=== PATIENT | male | born 1970 | race Caucasian/White ===

== ENCOUNTER 2020-05-03 05:44 | Outpatient (RCR) | payer OTHER ==
[~2020-05-03] VITALS: Ht 195 cm
== END 2020-05-03 12:24 | disposition home or self-care (01) ==
LOC: PREOP 05:44
PROVIDERS: ATTEND Surgery
DX: Z01.818 Encounter for other preprocedural examination (principal)

== ENCOUNTER → 2020-05-07 | Outpatient (CLI) | payer OTHER ==
[~2020-05-07] MED LIST: HYDR-4226 PO
== END ==
LOC: LAB FS 10:24
PROVIDERS: ATTEND Surgery
DX: Z01.812 Encounter for preprocedural laboratory examination (principal); K42.0 Umbilical hernia with obstruction, without gangrene; Z20.828 Contact with and (suspected) exposure to other viral communicable diseases
CPT/HCPCS: 87635

== ENCOUNTER 2020-05-09 07:00 | Day surgery (SDC) | payer OTHER ==
[~2020-05-09] VITALS: Ht 195 cm; Wt 120.2 kg
[2020-05-09] VITALS (12 sets, daily range): BP systolic 101–140; BP diastolic 71–91
[2020-05-09] MEDS ORDERED: LACTATED RINGERS 1,000 ML IV PRN (07:02)
[2020-05-09] MEDS ORDERED: CLINDAMYCIN 600 MG/50 ML IVPB 50 ML IV ONE (07:15)
[2020-05-09] MEDS ORDERED: CATHETER FLUSH 10 ML SYR IV PRN (07:15)
[2020-05-09] MEDS ORDERED: BUP/EPI 0.5% 1:200,000 (SENSORCAINE) 30 ML VIAL ONE (07:32)
[2020-05-09] MEDS ORDERED: MIDAZOLAM 2 MG/2 ML (VERSED) VIAL ONE (07:37)
[2020-05-09] MEDS ORDERED: LIDOCAINE PF 2% 5 ML (XYLOCAINE) VIAL ONE (07:37)
[2020-05-09] MEDS ORDERED: ROCURONIUM 10 MG/ML 5 ML SYRINGE IV ONE (07:37)
[2020-05-09] MEDS ORDERED: NEOSTIGMINE 3 MG/3 ML VIAL ONE (07:37)
[2020-05-09] MEDS ORDERED: SEVOFLURANE (ULTANE) 15 ML INHAL SOLN ONE (07:37)
[2020-05-09] MEDS ORDERED: fentaNYL INJECTION 100 MCG/2 ML AMP ONE (07:37)
[2020-05-09] MEDS ORDERED: ONDANSETRON 4 MG/2 ML (SDV) Z0FRAN ONE (07:37)
[2020-05-09] MEDS ORDERED: GLYCOPYRROLATE 0.2 MG/ML (ROBINUL) 2 ML VIAL ONE (07:37)
[2020-05-09] MEDS ORDERED: proPOfol 200 MG/20 ML (DIPRIVAN) VIAL IV ONE (07:37)
[2020-05-09 07:44] LABS: BASOPHILS # (AUTO) 0.1 10^3/uL (0.0-0.1); BASOPHILS % (AUTO) 1 % (0-10); EOSINOPHILS # (AUTO) 0.2 10^3/uL (0.0-0.3); EOSINOPHILS % (AUTO) 2 % (0-10); HEMATOCRIT 50 % (40-54); HEMOGLOBIN 16.1 g/dL (13.3-17.7); LYMPHOCYTES # (AUTO) 2.1 10^3/uL (1.0-4.0); LYMPHOCYTES % (AUTO) 20 % (12-44); MEAN CORPUSCULAR HEMOGLOBIN 29 pg (25-34); MEAN CORPUSCULAR HGB CONC 33 g/dL (32-36); MEAN CORPUSCULAR VOLUME 88 fL (80-99); MEAN PLATELET VOLUME 10.2 fL (9.0-12.2); MONOCYTES # (AUTO) 0.9 10^3/uL (0.0-1.0); MONOCYTES % (AUTO) 9 % (0-12); NEUTROPHILS # (AUTO) 7.1 10^3/uL (1.8-7.8); NEUTROPHILS % (AUTO) 68 % (42-75); PLATELET COUNT 338 10^3/uL (130-400); WHITE BLOOD COUNT 10.4 10^3/uL (4.3-11.0)
--- NOTE | 2020-05-09 08:20 | Progress Note-Pre Operative ---
Pre-Operative Progress Note H&P Reviewed The H&P was reviewed, patient examined and no changes noted. Time Seen by Provider: 08:11 Date H&P Reviewed: May 09, 2020 Time H&P Reviewed: 08:12 Pre-Operative Diagnosis: Incarcerated Umb hernia WILLY OSHEA DO May 09, 2020 08:20
[2020-05-09] MEDS ORDERED: HYDROmorphone 2 MG/ML VIAL (DILAUDID) ONE (09:04)
--- NOTE | 2020-05-09 09:11 | Progress Note-Post Operative ---
Post-Operative Progess Note Surgeon (s)/Dosimetrist (s) Surgeon WILLY OSHEA DO Dosimetrist: Rahda Pre-Operative Diagnosis Incarcerated Umb hernia Post-Operative Diagnosis same Procedure & Operative Findings Date of Procedure 05/09/20 Procedure Performed/Findings PROCEDURE: Laparoscopic [umbilical] hernia repair with mesh. COMPLICATIONS: None. INDICATIONS: The patient is a 50, male with an [incarcerated umbilical] hernia, which has continued to increase in size and cause discomfort. The patient was explained the risk and benefits of the procedure and wished to proceed with the procedure. Consent was signed on the chart. DESCRIPTION OF PROCEDURE: The patient was taken into the operating suite, prepped and draped in sterile fashion. Surgical pause was performed. Local anesthetic was infiltrated in left upper quadrant. A #11 blade scalpel was used to make a small skin incision. Cautery was used to dissect down to the fascia, which was then scored and divided the muscle, went through the posterior sheath and a balloon trocar was inserted into the abdomen. The abdomen was then insufflated. [findings] A 5 mm trocar was placed in the right lower quadrant and a 5 mm trocar was placed in left lower quadrant. Next took omentum out of hernia and then removed preperitoneal fat as well. I also took some fat of peritoneum to ensure the mesh would lay down nicely. Echo Ventralight mesh was then inserted in the abdomen grabbed through the stab incision. The balloon was inflated on the mesh. Circumferential tacks were placed with a SecureStrap Tacker. The balloon was then removed and inner crown was created as well. The mesh was tacked with pressure being decreased. The 12 mm fascial defect was then closed using 0 Vicryl. The abdomen was then desufflated,the trocars were removed. The skin was then closed using 4-0 Monocryl in a running subcuticular fashion. The abdomen was washed and dried and Skin Affix was placed over the incisions. The patient tolerated procedure well without any complications. He was taken to recovery room in stable condition. Dr. Garcia assisted on this case helping to make incisions, close incisions, identify anatomy and hold anatomy out of the way. Anesthesia Type GET Estimated Blood Loss Estimated blood loss (mL): scant Specimens/Packing Specimens Removed none WILLY OSHEA DO May 09, 2020 09:11
[2020-05-09] MEDS ORDERED: HYDR-4226 PO (09:13)
--- NOTE | 2020-05-09 09:13 | Discharge Inst-Surgical ---
Discharge Inst-Surgical Depart Medication/Instructions New, Converted or Re-Newed RX: RX Given to Pt/Family Patient Instructions Follow up Appt: Make appointment for 1 week. [phone] Instructions: No lifting greater than 20 pounds. No strenuous activity. May shower in 24 hours, no tub bath or soaking. Use incentive spirometer at home as directed. No Smoking Skin/Wound Care: May remove bandages in am. You need to leave the Dermabond on incision it will fall off on it's own. Symptoms to Report: Appetite Changes, Extremity Discoloration, Numbness/Tingling, Swelling Increased, Bleeding Excessive, Eyesight Changes, Pain Increased, Urine Color Change, Constipation(Persistent), Fever over 101 degree F, Pain/Pressure in chest, Urinating Difficulty, Cough Up/Vomit Blood, Heart Beat Irreg/Pounding, Pain/Pressure in jaw, Cramps in feet or legs, Lightheadedness, Pain/Pressure in shoulder, Diarrhea(Persistent), Memory Changes Suddenly, Questions/Concerns, Weight gain consecutive days, Dizziness/Fainting, Nausea/Vomiting, Shortness of Breath, Weight gain over 2 pounds If questions or concerns contact your physician Or seek help at emergency department. Activity Activity as Tolerated: Yes Activity Instructions: Avoid Stress to Incision Driving Instructions: No Driving/Refer to Dr. Kwon Discharge Diet: No Restrictions Diet After 24 Hours: Clear Liquid if Nauseous If Any Problems/Questions/Issu: Contact Your Physician, Go to Emergency Room Skin/Wound Care Infection Signs and Symptoms: Increased Redness, Foul Odor of Wound, Increased Drainage, Skin Itchy or Has a Rash, Increased Swelling, Temperature Above 101 F Wound Care Comment: Heating pad to shoulder or neck tonight for pain Bathing Instructions: Shower Stitches/Michelle/Dermabond Dis: Dermabond Ice Pack: Ice On and Off Site (at incisions as needed for pain) WILLY OSHEA DO May 09, 2020 09:13
[2020-05-09] MEDS ORDERED: PHENYLEPHRINE 100 MCG/ML 10 ML (ANESTHESIA) SYR ONE (09:29)
[2020-05-09] MEDS ORDERED: ONDANSETRON 4 MG/2 ML (SDV) Z0FRAN IVP PRN (09:30)
[2020-05-09] MEDS ORDERED: morphine INJ 10 MG/ML 1ML (SYR OR VIAL) IVP ONE (09:30)
[2020-05-09] MEDS ORDERED: HYDROmorphone 2 MG/ML VIAL (DILAUDID) IV ONE (09:30)
--- NOTE | 2020-05-09 09:52 | Anesthesia-General Post-Op ---
General Patient Condition Mental Status/LOC: Same as Preop Cardiovascular: Satisfactory Nausea/Vomiting: Absent Respiratory: Satisfactory Pain: Controlled Complications: Absent Post Op Complications Complications None Follow Up Care/Instructions Patient Instructions None needed. Anesthesia/Patient Condition Patient Condition Patient is doing well, having abdominal pain which is to be expected after this procedure, stable vital signs, no apparent adverse anesthesia problems. LEATHA RABAGO DO May 09, 2020 09:52
--- NOTE | 2020-05-09 11:15 | NUR ---
2ND BAG FLUIDS 600CC INFUSED
== END 2020-05-09 11:30 | disposition home or self-care (01) ==
LOC: SDC 07:00
PROVIDERS: ATTEND Surgery
DX: K42.0 Umbilical hernia with obstruction, without gangrene (principal); E66.9 Obesity, unspecified; Z68.31 Body mass index [BMI] 31.0-31.9, adult; F17.210 Nicotine dependence, cigarettes, uncomplicated; Z79.899 Other long term (current) drug therapy; Z88.0 Allergy status to penicillin; Z80.9 Family history of malignant neoplasm, unspecified; Z83.3 Family history of diabetes mellitus; Z82.49 Family history of ischemic heart disease and other diseases of the circulatory system
CPT/HCPCS: 49653; 85025; 87081; C1781; 36415

== ENCOUNTER → 2020-08-13 | Outpatient (CLI) | payer BC | LOC: CARD 08:58 | PROVIDERS: ATTEND Family Medicine | DX: R06.02 Shortness of breath (principal) | CPT/HCPCS: 93306 ==

== ENCOUNTER 2022-04-06 15:30 | Observation (INO) | payer BC, OTHER ==
[~2022-04-06] VITALS: Ht 193 cm; Wt 106.3 kg
[2022-04-06] MEDS ORDERED: KETOROLAC 30 MG/ML VIAL IVP STA (15:40)
[2022-04-06] MEDS ORDERED: NS IV 1000 ML 1,000 ML IV STA (15:40)
[2022-04-06] MEDS ORDERED: ONDANSETRON 4 MG/2 ML (SDV) Z0FRAN IVP STA (15:40)
[2022-04-06 15:45] LABS: BASOPHILS # (AUTO) 0.1 10^3/uL (0.0-0.1); BASOPHILS % (AUTO) 0 % (0-10); EOSINOPHILS # (AUTO) 0.2 10^3/uL (0.0-0.3); EOSINOPHILS % (AUTO) 1 % (0-10); HEMATOCRIT 50 % (40-54); HEMOGLOBIN 16.8 g/dL (13.3-17.7); LYMPHOCYTES # (AUTO) 3.7 10^3/uL (1.0-4.0); LYMPHOCYTES % (AUTO) 22 % (12-44); MEAN CORPUSCULAR HEMOGLOBIN 29 pg (25-34); MEAN CORPUSCULAR HGB CONC 34 g/dL (32-36); MEAN CORPUSCULAR VOLUME 86 fL (80-99); MEAN PLATELET VOLUME 9.5 fL (9.0-12.2); MONOCYTES # (AUTO) 1.5 10^3/uL (0.0-1.0); MONOCYTES % (AUTO) 9 % (0-12); NEUTROPHILS # (AUTO) 11.1 10^3/uL (1.8-7.8); NEUTROPHILS % (AUTO) 67 % (42-75); PLATELET COUNT 338 10^3/uL (130-400); WHITE BLOOD COUNT 16.6 10^3/uL (4.3-11.0)
[2022-04-06] MEDS ORDERED: NS 100 ML (IVPB) BAG IV ONE (16:00)
[2022-04-06] MEDS ORDERED: IOHEXOL 350 MG/ML 100 ML (OMNIPAQUE 350) VIAL IV ONE (16:00)
[2022-04-06] MEDS ORDERED: HOLD METFORMIN - RECEIVED CONTRAST 20 ML VIAL IV SCH (16:00)
[2022-04-06 16:06] LABS: POTASSIUM 4.1 MMOL/L (3.6-5.0)
--- NOTE | 2022-04-06 16:06 | ED Abdominal Pain ---
General Chief Complaint: Abdominal/GI Problems Stated Complaint: LRQ PAIN Source of Information: Patient, Spouse History of Present Illness Date Seen by Provider: Apr 06, 2022 Time Seen by Provider: 15:38 Initial Comments 52-year-old male presenting with complaints of right sided abdominal pain that started yesterday. He had been helping family members move furniture and thought that maybe he had a pulled muscle. He had gone to see car races last night despite having the pain. He states that throughout the day his pain is felt worse and he has had nausea and poor appetite. He has not had any documented fever or chills. He states that he has previously had kidney stones as well as a hernia repair. He still has his gallbladder and appendix. He had a bowel movement yesterday morning that was normal. He denies any pain or burning with urination. Timing/Duration: 12-24 Hours Severity/Quality: Severe, Sharp Location: RUQ, RLQ Radiation: No Radiation Activities at Onset: None Modifying Factors: Worsens With Eating, Worsens With Movement, Worsens With Palpation Associated Symptoms: No Back Pain, No Chest Pain, No Diaphoresis, No Fever/Chills, No Headache, No Heartburn; Nausea/Vomiting; No Rash, No Shortness of Air, No Swelling/Mass in Abdomen, No Syncope, No Weakness Allergies and Home Medications Allergies Coded Allergies: Penicillins (Verified Allergy, Unknown, FROM CHILDHOOD, 05/03/20) Patient Home Medication List Home Medication List Reviewed: Yes Hydrocodone/Acetaminophen (Hydrocodone/Acetaminophen 5 MG/325 MG TAB) 1 Each Tablet, 1 TAB PO Q6H Prescribed by: WILLY OSHEA on 05/09/20 0913 Review of Systems Review of Systems Constitutional: No chills, No fever EENTM: No Symptoms Reported Respiratory: No Symptoms Reported Cardiovascular: No Symptoms Reported Gastrointestinal: See HPI Genitourinary: Denies Pain Musculoskeletal: no symptoms reported Skin: no symptoms reported Psychiatric/Neurological: No Symptoms Reported Endocrine: No Symptoms Reported Past Eepdrnt-Ionmiy-Waoffy Hx Seasonal Allergies Seasonal Allergies: Yes Past Medical History Surgery/Hospitalization HX: Inguinal hernia Surgeries: Yes (R WRIST FX, L TIBIA FX, BACK) Adenoidectomy Respiratory: No Cardiac: No Neurological: No Genitourinary: No Gastrointestinal: No Musculoskeletal: No Endocrine: No HEENT: Yes (GLASSES) Cancer: No Psychosocial: No Integumentary: No Blood Disorders: No Adverse Reaction/Blood Tranf: No (N/A) Physical Exam Vital Signs Vital Signs - First Documented 04/06/22 04/06/22 16:01 16:56 Temp 36.3 Pulse 88 Resp 20 B/P (MAP) 156/100 (118) Pulse Ox 96 O2 Delivery Room Air Capillary Refill : Height/Weight/BMI Height: '" Weight: lbs. oz. kg; 31.61 BMI Method: General Appearance: moderate distress HEENT: PERRL/EOMI, pharynx normal Neck: non-tender, full range of motion, supple, normal inspection Respiratory: chest non-tender, lungs clear, normal breath sounds Cardiovascular: normal peripheral pulses, regular rate, rhythm Gastrointestinal: soft, no pulsatile mass, abnormal bowel sounds (Hypoactive); No distended; guarding; No rebound; tenderness (Right upper quadrant and right lower quadrant) Rectal: deferred Extremities: normal range of motion, non-tender, normal capillary refill Back: no CVA tenderness Neurologic/Psychiatric: alert, oriented x 3 Skin: normal color, warm/dry Progress/Results/Core Measures Results/Orders Lab Results Laboratory Tests Test 04/06/22 15:40 Range/Units White Blood Count 16.6 H 4.3-11.0 10^3/uL Red Blood Count 5.86 H 4.30-5.52 10^6/uL Hemoglobin 16.8 13.3-17.7 g/dL Hematocrit 50 40-54 % Mean Corpuscular Volume 86 80-99 fL Mean Corpuscular Hemoglobin 29 25-34 pg Mean Corpuscular Hemoglobin Concent 34 32-36 g/dL Red Cell Distribution Width 13.5 10.0-14.5 % Platelet Count 338 130-400 10^3/uL Mean Platelet Volume 9.5 9.0-12.2 fL Immature Granulocyte % (Auto) 1 % Neutrophils (%) (Auto) 67 42-75 % Lymphocytes (%) (Auto) 22 12-44 % Monocytes (%) (Auto) 9 0-12 % Eosinophils (%) (Auto) 1 0-10 % Basophils (%) (Auto) 0 0-10 % Neutrophils # (Auto) 11.1 H 1.8-7.8 10^3/uL Lymphocytes # (Auto) 3.7 1.0-4.0 10^3/uL Monocytes # (Auto) 1.5 H 0.0-1.0 10^3/uL Eosinophils # (Auto) 0.2 0.0-0.3 10^3/uL Basophils # (Auto) 0.1 0.0-0.1 10^3/uL Immature Granulocyte # (Auto) 0.1 0.0-0.1 10^3/uL Neutrophils % (Manual) 64 % Lymphocytes % (Manual) 25 % Monocytes % (Manual) 11 % Sodium Level 139 135-145 MMOL/L Potassium Level 4.1 3.6-5.0 MMOL/L Chloride Level 100 98-107 MMOL/L Carbon Dioxide Level 26 21-32 MMOL/L Anion Gap 13 5-14 MMOL/L Blood Urea Nitrogen 11 7-18 MG/DL Creatinine 0.89 0.60-1.30 MG/DL Estimat Glomerular Filtration Rate 104 BUN/Creatinine Ratio 12 Glucose Level 124 H 70-105 MG/DL Calcium Level 9.4 8.5-10.1 MG/DL Corrected Calcium 9.2 8.5-10.1 MG/DL Total Bilirubin 0.8 0.1-1.0 MG/DL Aspartate Amino Transf (AST/SGOT) 20 5-34 U/L Alanine Aminotransferase (ALT/SGPT) 23 0-55 U/L Alkaline Phosphatase 130 40-136 U/L Total Protein 7.5 6.4-8.2 GM/DL Albumin 4.2 3.2-4.5 GM/DL Lipase 78 8-78 U/L My Orders Orders - PENNY RICHARDS MD Comprehensive Metabolic Panel (04/06/22 15:40) Lipase (04/06/22 15:40) Ua Culture If Indicated (04/06/22 15:40) Ed Iv/Invasive Line Start (04/06/22 15:40) Cbc With Automated Diff (04/06/22 15:40) Ct Abdomen/Pelvis W (04/06/22 15:40) Ns Iv 1000 Ml (Sodium Chloride 0.9%) (04/06/22 15:40) Ondansetron Injection (Zofran Injectio (04/06/22 15:40) Ketorolac Injection (Toradol Injection) (04/06/22 15:40) Manual Differential (04/06/22 15:40) Iohexol Injection (Omnipaque 350 Mg/Ml 1 (04/06/22 16:00) Received Contrast (Hold Metformin- Contr (04/06/22 16:00) Ns (Ivpb) (Sodium Chloride 0.9% Ivpb Bag (04/06/22 16:00) Ciprofloxacin Iv 400mg/200ml (Cipro Iv S (04/06/22 16:47) Metronidazole 500mg/100ml Ivpb (Flagyl 5 (04/06/22 16:47) Lactated Ringers (Lr 1000 Ml Iv Solution (04/06/22 16:47) Medications Given in ED Current Medications Medications Dose Ordered Sig/Bhanu Route Start Time Stop Time Status Last Admin Dose Admin Iohexol 100 ml ONCE ONCE IV 04/06/22 16:00 04/06/22 16:01 DC 04/06/22 16:05 100 ML Sodium Chloride 100 ml ONCE ONCE IV 04/06/22 16:00 04/06/22 16:01 DC 04/06/22 16:05 100 ML Vital Signs/I&O 04/06/22 04/06/22 16:01 16:56 Temp 36.3 36.3 Pulse 88 81 Resp 20 B/P (MAP) 156/100 (118) 150/86 Pulse Ox 96 96 O2 Delivery Room Air Progress Progress Note #1: Progress Note Check basic labs, urine and CT scan of the abdomen and pelvis to evaluate for possible infection versus appendicitis versus colitis versus diverticulitis versus pyelonephritis versus kidney stone. Give normal saline 1 L IV fluid bolus for hydration, Toradol 30 mg IV for pain, Zofran 4 mg IV for nausea and vomiting Progress Note #2: Progress Note Labs shows elevated white blood cell count to 16.6 thousand with a left shift. Chemistry does not show any acute significant abnormality. His symptoms were little improved with treatment here in the ED but continues to have localized pain with palpation and movement. Progress Note #3: Time: 16:[address] scan shows findings for acute appendicitis without perforation or abscess. Discussed with Dr. Garcia the on-call surgeon and he accepted the patient for admission. Since he last had something to eat around 3 or 3:30 PM will keep him n.p.o. and start Cipro and Flagyl since he has a penicillin allergy. Continue with IV fluids and pain medicine with plans to do surgery later tonight or tomorrow once the antibiotics have started to help with the inflammation and pain Diagnostic Imaging Diagonstic Imaging: CT Plain Films/CT/US/NM/MRI: abdomen, pelvis Comments NAME: GISELL [facility]OST [facility] REC#: [id number] PT STATUS: REG ER : 1970 PHYSICIAN: PENNY RICHARDS MD ADMIT DATE: 04/06/22/ER FS Signed Date of Exam:04/06/22 CT ABDOMEN/PELVIS W PROCEDURE: CT abdomen and pelvis with contrast. TECHNIQUE: Multiple contiguous axial images were obtained through the abdomen and pelvis after administration of intravenous contrast. Auto Exposure Controls were utilized during the CT exam to meet ALARA standards for radiation dose reduction. All CT scans use one or more of the following dose optimizing techniques: automated exposure control, MA and/or KvP adjustment based on patient size and exam type or iterative reconstruction. DATE: April 06, 2022. COMPARISON: CT abdomen and pelvis April 12, 2014. INDICATION: 52-year-old male, right lower quadrant abdominal pain. Nausea and vomiting. FINDINGS: The visualized portions of the lung bases are clear. The heart is not enlarged. There is no identified pericardial effusion. The liver is unremarkable in size and contour. There is no identified liver lesion. The main, right and left portal veins are patent. The gallbladder is unremarkable. There is no biliary ductal dilation. Unremarkable appearance of the pancreas. The spleen is normal in size. The adrenal glands are unremarkable. There is a nonobstructing right renal stone. The urinary collecting systems are not distended. There is no identified ureteral stone. The urinary bladder is unremarkable. The appendix is abnormally dilated with very prominent adjacent inflammatory stranding consistent with acute appendicitis. There is no identified free intraperitoneal air. There is no identified drainable fluid collection or abscess. The additional segments of the intestinal tract are not distended. There are atherosclerotic calcifications. There is no identified abnormally enlarged lymph node in the abdomen or pelvis which meets CT size criteria for adenopathy. There is no identified acute bony abnormality. There are degenerative changes of the spine. IMPRESSION: CT abdomen and pelvis: 1. Findings consistent with acute appendicitis without evidence of perforation or abscess. Dictated by: Dictated on workstation # [id number] Dict: 04/06/22 1609 Trans: 04/06/22 1636 [facility] [id number] Interpreted by: DANIELA SAEZ MD Electronically signed by: DANIELA SAEZ MD 04/06/22 [id number] Reviewed: Reviewed by Me Departure Communication (Admissions) Time/Spoke to Admitting Phy: 16:[address] Garcia for general surgery and he advised to start antibi otics on the patient, keep him n.p.o., admitted to the hospital and he would see him later tonight or early tomorrow morning. Impression Primary Impression: Acute appendicitis Qualified Codes: K35.30 - Acute appendicitis with localized peritonitis, without perforation or gangrene Additional Impression: Right lower quadrant abdominal pain Disposition: 30 STILL A PATIENT Condition: Stable Admissions Decision to Admit Reason: Admit from ER (General) Decision to Admit/Date: Apr 06, 2022 Time/Decision to Admit Time: 16:42 Departure-Patient Inst. Referrals: PIPPA CROCKER MD (PCP) Primary Care Physician PENNY RICHARDS MD Apr 06, 2022 16:06
[2022-04-06 16:07] LABS: ALBUMIN 4.2 GM/DL (3.2-4.5); BILIRUBIN,TOTAL 0.8 MG/DL (0.1-1.0); CALCIUM 9.4 MG/DL (8.5-10.1); CREATININE SERUM 0.89 MG/DL (0.60-1.30); TOTAL PROTEIN 7.5 GM/DL (6.4-8.2)
[2022-04-06 16:13] LABS: LYMPHOCYTES % (MANUAL) 25 %; MONOCYTES % (MANUAL) 11 %; NEUTROPHILS % (MANUAL) 64 %
--- NOTE | 2022-04-06 16:36 | Diagnostic Imaging Report ---
PROCEDURE: CT abdomen and pelvis with contrast. TECHNIQUE: Multiple contiguous axial images were obtained through the abdomen and pelvis after administration of intravenous contrast. Auto Exposure Controls were utilized during the CT exam to meet ALARA standards for radiation dose reduction. All CT scans use one or more of the following dose optimizing techniques: automated exposure control, MA and/or KvP adjustment based on patient size and exam type or iterative reconstruction. DATE: April 06, 2022. COMPARISON: CT abdomen and pelvis April 12, 2014. INDICATION: 52-year-old male, right lower quadrant abdominal pain. Nausea and vomiting. FINDINGS: The visualized portions of the lung bases are clear. The heart is not enlarged. There is no identified pericardial effusion. The liver is unremarkable in size and contour. There is no identified liver lesion. The main, right and left portal veins are patent. The gallbladder is unremarkable. There is no biliary ductal dilation. Unremarkable appearance of the pancreas. The spleen is normal in size. The adrenal glands are unremarkable. There is a nonobstructing right renal stone. The urinary collecting systems are not distended. There is no identified ureteral stone. The urinary bladder is unremarkable. The appendix is abnormally dilated with very prominent adjacent inflammatory stranding consistent with acute appendicitis. There is no identified free intraperitoneal air. There is no identified drainable fluid collection or abscess. The additional segments of the intestinal tract are not distended. There are atherosclerotic calcifications. There is no identified abnormally enlarged lymph node in the abdomen or pelvis which meets CT size criteria for adenopathy. There is no identified acute bony abnormality. There are degenerative changes of the spine. IMPRESSION: CT abdomen and pelvis: 1. Findings consistent with acute appendicitis without evidence of perforation or abscess. Dictated by: Dictated on workstation # [id number]
[2022-04-06] MEDS ORDERED: metroNIDAZOLE 500MG/100ML IVPB 100 ML IV STA (16:47)
[2022-04-06] MEDS ORDERED: CIPROFLOXACIN IV 400MG/200ML 200 ML IV STA (16:47)
[2022-04-06] MEDS ORDERED: LACTATED RINGERS 1,000 ML IV STA (16:47)
[2022-04-06] MEDS ORDERED: ONDANSETRON 4 MG/2 ML (SDV) Z0FRAN IVP PRN (18:15)
[2022-04-06] MEDS ORDERED: morphine INJ 4 MG/ML 1 ML (VIAL/SYRINGE) ONE (18:17)
[2022-04-06] MEDS: LACTATED RINGERS 1,000 ML IV SCH ×2 (18:22→23:23)
[2022-04-06] MEDS: morphine INJ 4 MG/ML 1 ML (VIAL/SYRINGE) IVP PRN ×2 (18:23→22:57)
[2022-04-06 20:09] VITALS: BP 117/80
[2022-04-06] MEDS: NICOTINE 21 MG (NICODERM) PATCH TD SCH (23:23)
[2022-04-06 23:42] VITALS: BP 108/71
[2022-04-07] VITALS (10 sets, daily range): BP systolic 112–129; BP diastolic 61–91
[2022-04-07] MEDS ORDERED: ACETAMINOPHEN 325 MG TABLET PO PRN
[2022-04-07] MEDS ORDERED: metroNIDAZOLE 500MG/100ML IVPB 100 ML IV SCH (05:00)
[2022-04-07] MEDS ORDERED: CIPROFLOXACIN IV 400MG/200ML 200 ML IV SCH (05:00)
[2022-04-07] MEDS: morphine INJ 4 MG/ML 1 ML (VIAL/SYRINGE) IVP PRN (05:07)
--- NOTE | 2022-04-07 07:27 | History & Physical-Surgical ---
History of Present Illness History of Present Illness Patient Consulted On(opal/time) 04/07/22 07:21 Date Seen by Provider: Apr 07, 2022 Time Seen by Provider: 08:05 History of Present Illness Patient is a 52 year old male who presented to the ED on 04/06 with chief complaint of RLQ abdominal pain. Pt states that his pain started on 04/05 around 17:00 when he was helping his son move. He initially thought he had pulled a muscle, but the pain began to progressively worsen. Patient states that his pain is now a 4-5/10 but that before admission it was a 12/10. Patient describes the pain as sharp and constant, and has not noticed anything that makes the pain better or worse. Patient states that on 04/05 the pain radiated to his flank and right lower back, but by the end of the day, was only located in his RLQ. Patient had some nausea yesterday, with one episode of vomiting. He does not currently feel nauseous. CT showed an abnormally dilated appendix with prominent adjacent stranding consistent with acute appendicitis without signs of perforation or abscess formation. Patient has also had some intermittent fever and chills. Patient is tender on palpation in the RLQ with some guarding. CC: RLQ abdominal pain. Patient is a 52 year old male who had rlq abdominal pain started about 2 days ago. Sharp pain move to flank and back some, then focalized to rlq. [place] 7/10 currently. Worse with movement. Laying still a little better. Has had nausea and emesis. Ct scan consistent with acute appendicitis. Allergies and Home Medications Allergies Coded Allergies: Penicillins (Verified Allergy, Unknown, FROM CHILDHOOD, 05/03/20) Patient Home Medication List Home Medication List Reviewed: Yes Hydrocodone/Acetaminophen (Hydrocodone/Acetaminophen 5 MG/325 MG TAB) 1 Each Tablet, 1 TAB PO Q6H Prescribed by: WILLY OSHEA on 05/09/20 0913 Past Xseyhvp-Hkymsr-Ikktgt Hx Patient Social History Smoking Status: Current Everyday Smoker (1.5 PPD, approximately 40 years) Type Used: Cigarettes 2nd Hand Smoke Exposure: Yes Recent Hopitalizations: No Alcohol Use?: No Have you traveled recently?: No Seasonal Allergies Seasonal Allergies: Yes Surgeries History of Surgeries: Yes (R WRIST FX, L TIBIA FX, BACK, Hernia) Surgeries: Adenoidectomy Respiratory History of Respiratory Disorde: No Cardiovascular History of Cardiac Disorders: No Neurological History of Neurological Disord: No Genitourinary History of Genitourinary Disor: No Gastrointestinal History of Gastrointestinal Di: No Musculoskeletal History of Musculoskeletal Dis: No Endocrine History of Endocrine Disorders: No HEENT History of HEENT Disorders: Yes (GLASSES) Cancer History of Cancer: No Psychosocial History of Psychiatric Problem: No Integumentary History of Skin or Integumenta: No Blood Transfusions History of Blood Disorders: No Adverse Reaction to a Blood Tr: No (N/A) Family Medical History Significant Family History: No Pertinent Family Hx Review of Systems-General Constitutional: chills, fever; No weakness EENTM: No hearing loss, No blurred vision, No double vision Respiratory: No cough, No short of breath Cardiovascular: No chest pain, No edema Gastrointestinal: RLQ; No constipation, No diarrhea; nausea, vomiting Genitourinary: No dysuria, No frequency Musculoskeletal: back pain (Unchanged from normal), joint pain (Unchanged from normal) Skin: No change in color, No change in hair/nails Psychiatric/Neurological: Denies Anxiety, Denies Depressed, Denies Emotional Problems, Denies Numbness, Denies Weakness All Other Systems Reviewed Negative Unless Noted: Yes (Negative excepted noted.) Physical Exam-General Problems Physical Exam Vital Signs Vital Signs - First Documented 04/06/22 04/06/22 16:01 16:56 Temp 36.3 Pulse 88 Resp 20 B/P (MAP) 156/100 (118) Pulse Ox 96 O2 Delivery Room Air Capillary Refill : General Appearance: WD/WN, no apparent distress HEENT: PERRL/EOMI, pharynx normal Neck: non-tender, supple Respiratory: chest non-tender, no respiratory distress Cardiovascular: regular rate, rhythm, no edema Gastrointestinal: distended, guarding (RLQ), tenderness (RLQ) Rectal: deferred Back: no CVA tenderness, no vertebral tenderness Extremities: non-tender, normal capillary refill Neurologic/Psychiatric: alert, normal mood/affect, oriented x 3 Skin: normal color, warm/dry Lymphatic: no adenopathy Data Review Labs Laboratory Tests 04/06/22 15:40: White Blood Count 16.6H, Red Blood Count 5.86H, Hemoglobin 16.8, Hematocrit 50, Mean Corpuscular Volume 86, Mean Corpuscular Hemoglobin 29, Mean Corpuscular Hemoglobin Concent 34, Red Cell Distribution Width 13.5, Platelet Count 338, Mean Platelet Volume 9.5, Immature Granulocyte % (Auto) 1, Neutrophils (%) (Auto) 67, Lymphocytes (%) (Auto) 22, Monocytes (%) (Auto) 9, Eosinophils (%) (Auto) 1, Basophils (%) (Auto) 0, Neutrophils # (Auto) 11.1H, Lymphocytes # (Auto) 3.7, Monocytes # (Auto) 1.5H, Eosinophils # (Auto) 0.2, Basophils # (Auto) 0.1, Immature Granulocyte # (Auto) 0.1, Neutrophils % (Manual) 64, Lymphocytes % (Manual) 25, Monocytes % (Manual) 11, Sodium Level 139, Potassium Level 4.1, Chloride Level 100, Carbon Dioxide Level 26, Anion Gap 13, Blood Urea Nitrogen 11, Creatinine 0.89, Estimat Glomerular Filtration Rate 104, BUN/Creatinine Ratio 12, Glucose Level 124H, Calcium Level 9.4, Corrected Calcium 9.2, Total Bilirubin 0.8, Aspartate Amino Transf (AST/SGOT) 20, Alanine Aminotransferase (ALT/SGPT) 23, Alkaline Phosphatase 130, Total Protein 7.5, Albumin 4.2, Lipase 78 Assessment/Plan Assessment/Plan Admission Diagonsis rlq abdominal pain acute appendicitis nausea vomiting. Admission Status: Observation Reason for Inpatient Admission: Acute appendicitis Assessment/Plan Acute appendicitis Abdominal pain N/V Scheduled for appendectomy Maintain NPO Continue pain management Continue antibiotics Continue IV fluids Continue antiemetics rlq abdominal pain acute appendicitis nausea vomiting discussed risks and benefits of laparoscopic appendectomy all other indicated procedures he understands and wishes to proceed. Maintain NPO Continue pain management Continue antibiotics cipro/flagyl Continue IV fluids Continue antiemetics Supervisory-Addendum Brief Verification & Attestation Participated in pt care: history, MDM, physical Personally performed: exam, history, MDM, supervision of care Care discussed with: Medical Student Procedures: n/a Results interpretation: Verified all documentation Verification and Attestation of Medical Student E/M Service A medical student performed and documented this service in my presence. I reviewed and verified all information documented by the medical student and made modifications to such information, when appropriate. I personally performed the physical exam and medical decision making. Samantha Garcia, Apr 07, 2022,08:36 LIZETT HINDS Apr 07, 2022 07:27 SAMANTHA GARCIA DO Apr 07, 2022 08:31
[2022-04-07] MEDS ORDERED: LACTATED RINGERS 1,000 ML IV PRN (07:45)
[2022-04-07] MEDS ORDERED: LIDOCAINE PF 2% 5 ML (XYLOCAINE) VIAL ONE (08:56)
[2022-04-07] MEDS ORDERED: fentaNYL INJ 100 MCG/2 ML AMP ONE (08:56)
[2022-04-07] MEDS ORDERED: proPOfol 200 MG/20 ML (DIPRIVAN) VIAL IV ONE (08:56)
[2022-04-07] MEDS ORDERED: SUCCINYLCHOLINE INJ 100 MG/5 ML SYR/VIAL ONE (08:56)
[2022-04-07] MEDS ORDERED: ROCURONIUM 10 MG/ML 5 ML SYRINGE IV ONE (08:56)
[2022-04-07] MEDS ORDERED: MIDAZOLAM 2 MG/2 ML (VERSED) VIAL ONE (08:57)
[2022-04-07] MEDS: NICOTINE 21 MG (NICODERM) PATCH TD SCH (09:01)
[2022-04-07] MEDS ORDERED: LIDOCAINE/EPI 2% 1:200,00 (XYLOCAINE) 10 ML VIAL ONE (09:06)
[2022-04-07] MEDS ORDERED: PHENYLEPHRINE 100 MCG/ML 10 ML (ANESTHESIA) SYR ONE (09:35)
[2022-04-07] MEDS: LACTATED RINGERS 1,000 ML IV SCH (10:16)
[2022-04-07] MEDS ORDERED: NEOSTIGMINE (BLOXIVERZ ) 1 MG/1ML 10 ML VIAL ONE (10:25)
[2022-04-07] MEDS ORDERED: GLYCOPYRROLATE 0.2 MG/ML (ROBINUL) 2 ML VIAL ONE (10:25)
[2022-04-07] MEDS ORDERED: SEVOFLURANE (ULTANE) 15 ML INHAL SOLN ONE (10:32)
[2022-04-07] MEDS ORDERED: DOCU-143 PO (10:59)
[2022-04-07] MEDS ORDERED: CIPR-225 PO (10:59)
[2022-04-07] MEDS ORDERED: METR375C PO (10:59)
[2022-04-07] MEDS ORDERED: ACHD5005 PO (10:59)
[2022-04-07] MEDS ORDERED: PROMETHAZINE INJ 25 MG/ML (PHENERGAN) AMP IVP ONE (11:00)
[2022-04-07] MEDS ORDERED: morphine INJ 10 MG/ML 1ML (SYR OR VIAL) IVP ONE (11:00)
[2022-04-07] MEDS ORDERED: MEPERIDINE (DEMEROL) INJ 50 MG/ML IVP ONE (11:00)
[2022-04-07] MEDS ORDERED: HYDROmorphone 2 MG/ML VIAL (DILAUDID) IV ONE (11:00)
[2022-04-07] MEDS ORDERED: ONDANSETRON 4 MG/2 ML (SDV) Z0FRAN IVP PRN (11:00)
--- NOTE | 2022-04-07 11:00 | Discharge Inst-Simple/Standard ---
Discharge Inst-Standard Discharge Medications New, Converted or Re-Newed RX: Transmitted to Pharmacy Patient Instructions/Follow Up Plan of Care/Instructions/FU: 2-3 weeks Radha Activity as Tolerated: No Discharge Diet: Regular Diet Other Inst to Patient Follow up Appt: Make appointment for 2-3 week. Instructions: No lifting greater than 10 pounds. No strenuous activity. May shower in 24 hours, no tub bath or soaking. Use incentive spirometer at home as directed. No Smoking Skin/Wound Care: You have special glue over your incision that will fall off on it's own. Symptoms to Report: Appetite Changes, Extremity Discoloration, Numbness/Tingling, Swelling Increas ed, Bleeding Excessive, Eyesight Changes, Pain Increased, Urine Color Change, Constipation(Persistent), Fever over 101 degree F, Pain/Pressure in chest, Urinating Difficulty, Cough Up/Vomit Blood, Heart Beat Irreg/Pounding, Pain/Pressure in jaw, Vaginal Bleeding Increase, Cramps in feet or legs, Lightheadedness, Pain/Pressure in shoulder, Diarrhea(Persistent), Memory Changes Suddenly, Questions/Concerns, Weight gain consecutive days, Dizziness/Fainting, Nausea/Vomiting, Shortness of Breath, Weight gain over 2 pounds If questions or concerns contact your physician Or seek help at emergency department. SAMANTHA CHANDLER DO Apr 07, 2022 11:00
--- NOTE | 2022-04-07 13:24 | Anesthesia-General Post-Op ---
General Patient Condition Mental Status/LOC: Same as Preop Cardiovascular: Satisfactory Nausea/Vomiting: Absent Respiratory: Satisfactory Pain: Controlled Complications: Absent Post Op Complications Complications None Follow Up Care/Instructions Patient Instructions None needed. Anesthesia/Patient Condition Patient Condition Patient is doing well, no complaints, stable vital signs, no apparent adverse anesthesia problems. No complications reported per nursing. PERCY MENDEZ CRNA Apr 07, 2022 13:24
--- NOTE | 2022-04-07 13:51 | OPERATIVE REPORT ---
DATE OF SERVICE: 04/07/2022 PREOPERATIVE DIAGNOSES: Right lower quadrant abdominal pain, acute appendicitis. POSTOPERATIVE DIAGNOSES: Right lower quadrant abdominal pain, acute appendicitis. PROCEDURE: Laparoscopic appendectomy. SURGEON: Samantha Garcia DO ANESTHESIA: General. ESTIMATED BLOOD LOSS: Minimal. COMPLICATIONS: None. INDICATIONS: The patient is a 52-year-old male who presented to the Emergency Department 2 days of abdominal pain in the right lower quadrant. CT scan demonstrating acute appendicitis. The patient discussed risks and benefits of procedure and wished to proceed. Consent was signed in the chart. DESCRIPTION OF PROCEDURE: The patient was taken to the operating suite, was prepped and draped in sterile fashion. Timeout was performed. Local anesthetic was infiltrated just above the umbilicus. An 11 blade scalpel was used to make a small skin incision. Cautery was used to dissect down to the fascia, which was then scored and opened. The abdomen was then entered. A reynolds trocar was inserted, and pneumoperitoneum was achieved. Under direct visualization, lots of adhesions were present, but a window was present in the right upper quadrant where a 5 mm trocar was placed and a 5 mm trocar was placed in the right lower quadrant. Irrigation and suction was used to irrigate some reactive fluid. The appendix was inflamed and dilated. This was able to be grasped and elevated. A LigaSure was then used to divide the mesoappendix. A [place] was used to dissect around the base of the appendix. An Endo-LARRY 2.5 stapler was fired across the base of the appendix. The LigaSure was used to divide the rest of the mesoappendix. I then placed an Endobag and removed through 12 mm trocar site. The abdomen was then irrigated and suctioned with copious amounts of irrigation. The abdomen was then desufflated, the trocars were removed. The fascial defect of the 12 mm trocar was then closed with 0 Vicryl. Skin was then closed using 4-0 Monocryl in a subcuticular fashion. The abdomen was then washed and dried and Skin Affix was placed over the incisions. The patient tolerated the procedure well without any complications, taken to recovery room in stable condition. Job ID: [id number] DocumentID: [id number] Dictated Date: 04/07/2022 10:50:19 Portrait Studio Photographer Date: 04/07/2022 13:51:24 Dictated By: SAMANTHA GARCIA DO
[2022-04-07] MEDS ORDERED: PATCH REMOVAL TP SCH (21:00)
== END 2022-04-07 15:49 | disposition home or self-care (01) ==
LOC: EDUNIT# 15:30 → ER FS 15:32 → 4TH 18:03
PROVIDERS: ADMIT Surgery; ATTEND Surgery
DX: K35.80 Unspecified acute appendicitis (principal); F17.210 Nicotine dependence, cigarettes, uncomplicated; Z88.0 Allergy status to penicillin
CPT/HCPCS: 36415; 44970; 74177; 80053; 83690; 85007; 85027; 87081; 88304; 94760; 96361; 96366; 96374; 96375 ×2; 96376 ×2; 99284; G0378; Q9967

== ENCOUNTER 2022-04-08 20:35 | Observation (INO) | payer SELFPAY ==
[~2022-04-08] VITALS: Ht 193 cm; Wt 134.8 kg
[~2022-04-08 20:35] MED LIST changes: +ACHD5005 PO; +CIPR-225 PO; +DOCU-143 PO; +METR375C PO
[2022-04-08 21:08] LABS: BILIRUBIN,URINE 1+ (NEGATIVE); CLARITY,URINE CLEAR; COLOR,URINE ORANGE; GLUCOSE, URINE (UA) NEGATIVE (NEGATIVE); KETONES,URINE TRACE (NEGATIVE); LEUKOCYTE ESTERASE ,URINE TRACE (NEGATIVE); NITRITE,URINE NEGATIVE (NEGATIVE); PH,URINE 5.5 (5-9); PROTEIN,URINE 1+ (NEGATIVE)
[2022-04-08 21:14] LABS: BACTERIA,URINE NEGATIVE /HPF; RBC,URINE 0-2 /HPF
[2022-04-08] MEDS ORDERED: fentaNYL INJ 100 MCG/2 ML AMP IVP ONE (21:15)
[2022-04-08 21:23] LABS: BASOPHILS % (AUTO) 0 % (0-10); EOSINOPHILS # (AUTO) 0.4 10^3/uL (0.0-0.3); EOSINOPHILS % (AUTO) 2 % (0-10); HEMATOCRIT 47 % (40-54); HEMOGLOBIN 15.2 g/dL (13.3-17.7); LYMPHOCYTES # (AUTO) 1.4 10^3/uL (1.0-4.0); LYMPHOCYTES % (AUTO) 8 % (12-44); MEAN CORPUSCULAR HEMOGLOBIN 29 pg (25-34); MEAN CORPUSCULAR HGB CONC 32 g/dL (32-36); MEAN CORPUSCULAR VOLUME 89 fL (80-99); MEAN PLATELET VOLUME 10.3 fL (9.0-12.2); MONOCYTES # (AUTO) 1.1 10^3/uL (0.0-1.0); MONOCYTES % (AUTO) 6 % (0-12); NEUTROPHILS # (AUTO) 15.2 10^3/uL (1.8-7.8); NEUTROPHILS % (AUTO) 83 % (42-75); PLATELET COUNT 335 10^3/uL (130-400); WHITE BLOOD COUNT 18.2 10^3/uL (4.3-11.0)
[2022-04-08] MEDS ORDERED: NS IV 1000 ML 1,000 ML IV ONE (21:30)
[2022-04-08 21:42] LABS: ALBUMIN 3.7 GM/DL (3.2-4.5); BILIRUBIN,TOTAL 0.6 MG/DL (0.1-1.0); CALCIUM 9.6 MG/DL (8.5-10.1); CREATININE SERUM 0.96 MG/DL (0.60-1.30); POTASSIUM 3.9 MMOL/L (3.6-5.0); TOTAL PROTEIN 7.1 GM/DL (6.4-8.2)
[2022-04-08 21:43] LABS: EOSINOPHILS % (MANUAL) 3 %; LYMPHOCYTES % (MANUAL) 11 %; MONOCYTES % (MANUAL) 6 %; NEUTROPHILS % (MANUAL) 80 %; RBC MORPH NORMAL
[2022-04-08] MEDS ORDERED: IOHEXOL 350 MG/ML 100 ML (OMNIPAQUE 350) VIAL IV ONE (21:45)
[2022-04-08] MEDS ORDERED: NS 100 ML (IVPB) BAG IV ONE (21:45)
--- NOTE | 2022-04-08 21:51 | ED Abdominal Pain ---
General Chief Complaint: Post OP Complications/Pain Stated Complaint: POST OP, FEVER, VOMITING Nursing Triage Note: PT AMBULATORY INTO ER WITH COMPLAINT OF PAIN TO INCISION SITE POST OP. PATIENT HAD APPENDECTOMY YESTERDAY AND FEELS LIKE HE MIGHT HAVE A FEVER AND HAS PAIN TO INCISION SITE. NO NOTICABLY REDDENING OR DRAINING FOR SITE. PAIN AT 8/10. Source of Information: Patient Exam Limitations: No Limitations History of Present Illness Date Seen by Provider: Apr 08, 2022 Time Seen by Provider: 20:42 Initial Comments This is a 52-year-old male who presented to the ER with complaints of increased abdominal pain, nausea, and vomiting since his appendectomy yesterday with Dr. Chandler. States he was doing well initially after surgery but had progressive decline through the day. Has poor PO intake, chills, generalized malaise, and no flatulence. He is no longer able to keep down fluids, has dark urine with decreased output, and is unable to take his prescribed Cipro and Flagyl. Allergies and Home Medications Allergies Coded Allergies: Penicillins (Verified Allergy, Unknown, FROM CHILDHOOD, 05/03/20) Patient Home Medication List Home Medication List Reviewed: Yes Ciprofloxacin HCl (Cipro) 500 Mg Tablet, 500 MG PO BID Prescribed by: SAMANTHA CHANDLER on 04/07/22 1059 Docusate Sodium (Colace) 100 Mg Capsule, 100 MG PO BID Prescribed by: SAMANTHA CHANDLER on 04/07/22 1059 Hydrocodone/Acetaminophen (Hydrocodone-Acetamin 5-325 mg) 5 Mg-325 Mg Tablet, 1 EACH PO Q4H PRN for PAIN-MODERATE (5-7) Prescribed by: SAMANTHA CHANDLER on 04/07/22 1059 Metronidazole (Flagyl) 375 Mg Capsule, 500 MG PO TID Prescribed by: SAMANTHA CHANDLER on 04/07/22 1059 Discontinued Medications Hydrocodone/Acetaminophen (Hydrocodone/Acetaminophen 5 MG/325 MG TAB) 1 Each Tablet, 1 TAB PO Q6H Prescribed by: WILLY OSHEA on 05/09/20 0913 Review of Systems Review of Systems Constitutional: chills, malaise, weakness EENTM: No Symptoms Reported Respiratory: SOA With Exertion Cardiovascular: No Symptoms Reported Gastrointestinal: Abdomen Distended, Abdominal Pain, Constipated, Nausea, Poor Appetite, Poor Fluid Intake, Vomiting Genitourinary: See HPI; Denies Burning, Denies Flank Pain, Denies Hematuria Musculoskeletal: no symptoms reported Skin: no symptoms reported Psychiatric/Neurological: No Symptoms Reported Endocrine: No Symptoms Reported Hematologic/Lymphatic: No Symptoms Reported Past Tcqkqho-Rmwyiu-Hhmoif Hx Patient Social History Tobacco Use?: Yes Tobacco type used: Cigarettes Smoking Status: Current Everyday Smoker Use of E-Cig and/or Vaping dev: No Substance use?: No Alcohol Use?: No Pt feels they are or have been: No Immunizations Up To Date Influenza Vaccine Up-to-Date: No; Not Current Seasonal Allergies Seasonal Allergies: Yes Past Medical History Surgery/Hospitalization HX: Inguinal hernia Surgeries: Yes (R WRIST FX, L TIBIA FX, BACK, Hernia) Adenoidectomy Respiratory: No Currently Using CPAP: No Currently Using BIPAP: No Cardiac: No Neurological: No Genitourinary: No Gastrointestinal: No Musculoskeletal: No Endocrine: No HEENT: Yes (GLASSES) Cancer: No Psychosocial: No Integumentary: No Blood Disorders: No Adverse Reaction/Blood Tranf: No (N/A) Family Medical History No Pertinent Family Hx Physical Exam Vital Signs Vital Signs - First Documented 04/08/22 20:42 Temp 36.6 Pulse 83 Resp 20 B/P (MAP) 157/105 (122) Pulse Ox 99 O2 Delivery Room Air Capillary Refill : Less Than 3 Seconds Height/Weight/BMI Height: '" Weight: lbs. oz. kg; 28.53 BMI Method: General Appearance: WD/WN, no apparent distress HEENT: PERRL/EOMI, normal ENT inspection, pharynx normal Neck: full range of motion, normal inspection Respiratory: lungs clear, normal breath sounds, no respiratory distress, no accessory muscle use Cardiovascular: regular rate, rhythm, no gallop Gastrointestinal: abnormal bowel sounds, distended, guarding, tenderness Extremities: normal range of motion, normal inspection, no pedal edema Back: normal inspection Neurologic/Psychiatric: no motor/sensory deficits, alert, normal mood/affect, oriented x 3 Skin: normal color, warm/dry, other (abd post op sites clean, dry, to erythema or drainag. ) Focused Exam Lactate Level Lactic Acid Level Progress/Results/Core Measures Results/Orders Lab Results Laboratory Tests Test 04/08/22 20:49 04/08/22 21:03 Range/Units White Blood Count 18.2 H 4.3-11.0 10^3/uL Red Blood Count 5.30 4.30-5.52 10^6/uL Hemoglobin 15.2 13.3-17.7 g/dL Hematocrit 47 40-54 % Mean Corpuscular Volume 89 80-99 fL Mean Corpuscular Hemoglobin 29 25-34 pg Mean Corpuscular Hemoglobin Concent 32 32-36 g/dL Red Cell Distribution Width 13.9 10.0-14.5 % Platelet Count 335 130-400 10^3/uL Mean Platelet Volume 10.3 9.0-12.2 fL Immature Granulocyte % (Auto) 0 % Neutrophils (%) (Auto) 83 H 42-75 % Lymphocytes (%) (Auto) 8 L 12-44 % Monocytes (%) (Auto) 6 0-12 % Eosinophils (%) (Auto) 2 0-10 % Basophils (%) (Auto) 0 0-10 % Neutrophils # (Auto) 15.2 H 1.8-7.8 10^3/uL Lymphocytes # (Auto) 1.4 1.0-4.0 10^3/uL Monocytes # (Auto) 1.1 H 0.0-1.0 10^3/uL Eosinophils # (Auto) 0.4 H 0.0-0.3 10^3/uL Basophils # (Auto) 0.0 0.0-0.1 10^3/uL Immature Granulocyte # (Auto) 0.1 0.0-0.1 10^3/uL Neutrophils % (Manual) 80 % Lymphocytes % (Manual) 11 % Monocytes % (Manual) 6 % Eosinophils % (Manual) 3 % Blood Morphology Comment NORMAL Prothrombin Time 14.6 12.2-14.7 SEC INR Comment 1.1 0.8-1.4 Activated Partial Thromboplast Time 40 H 24-35 SEC Sodium Level 139 135-145 MMOL/L Potassium Level 3.9 3.6-5.0 MMOL/L Chloride Level 101 98-107 MMOL/L Carbon Dioxide Level 25 21-32 MMOL/L Anion Gap 13 5-14 MMOL/L Blood Urea Nitrogen 14 7-18 MG/DL Creatinine 0.96 0.60-1.30 MG/DL Estimat Glomerular Filtration Rate 96 BUN/Creatinine Ratio 15 Glucose Level 120 H 70-105 MG/DL Calcium Level 9.6 8.5-10.1 MG/DL Corrected Calcium 9.8 8.5-10.1 MG/DL Total Bilirubin 0.6 0.1-1.0 MG/DL Aspartate Amino Transf (AST/SGOT) 21 5-34 U/L Alanine Aminotransferase (ALT/SGPT) 22 0-55 U/L Alkaline Phosphatase 74 40-136 U/L Total Creatine Kinase 96 30-200 U/L C-Reactive Protein High Sensitivity 15.04 H 0.00-0.50 MG/DL Total Protein 7.1 6.4-8.2 GM/DL Albumin 3.7 3.2-4.5 GM/DL Urine Color ORANGE Urine Clarity CLEAR Urine pH 5.5 5-9 Urine Specific [place] >=1.030 1.016-1.022 Urine Protein 1+ H NEGATIVE Urine Glucose (UA) NEGATIVE NEGATIVE Urine Ketones TRACE H NEGATIVE Urine Nitrite NEGATIVE NEGATIVE Urine Bilirubin 1+ H NEGATIVE Urine Urobilinogen 1.0 < = 1.0 MG/DL Urine Leukocyte Esterase TRACE H NEGATIVE Urine RBC (Auto) TRACE-I H NEGATIVE Urine RBC 0-2 /HPF Urine WBC 2-5 /HPF Urine Squamous Epithelial Cells NONE /HPF Urine Renal Epithelial Cells NONE /HPF Urine Crystals NONE /LPF Urine Bacteria NEGATIVE /HPF Urine Casts NONE /LPF Urine Mucus LARGE H /LPF Urine Culture Indicated YES My Orders Orders - TALI PRESSLEY APRN Ua Culture If Indicated (04/08/22 20:41) Urine Culture (04/08/22 21:03) Fentanyl Inj (Sublimaze Injection) (04/08/22 21:15) Cbc With Automated Diff (04/08/22 21:16) Comprehensive Metabolic Panel (04/08/22 21:16) Hs C Reactive Protein (04/08/22 21:16) Creatine Kinase (04/08/22 21:16) Ns Iv 1000 Ml (Sodium Chloride 0.9%) (04/08/22 21:30) Manual Differential (04/08/22 20:49) Ct Abdomen/Pelvis W (04/08/22 21:34) Blood Culture (04/08/22 21:46) Protime With Inr (04/08/22 21:46) Partial Thromboplastin Time (04/08/22 21:46) Lactic Acid Analyzer (04/08/22 21:46) Medications Given in ED Current Medications Medications Dose Ordered Sig/Bhanu Route Start Time Stop Time Status Last Admin Dose Admin Fentanyl Citrate 50 mcg ONCE ONCE IVP 04/08/22 21:15 04/08/22 21:16 DC 04/08/22 21:25 50 MCG Iohexol 100 ml ONCE ONCE IV 04/08/22 21:45 04/08/22 21:46 DC 04/08/22 21:46 100 ML Sodium Chloride 100 ml ONCE ONCE IV 04/08/22 21:45 04/08/22 21:46 DC 04/08/22 21:46 80 ML Sodium Chloride 1,000 ml @ 0 mls/hr Q0M ONCE IV 04/08/22 21:30 04/08/22 21:31 DC 04/08/22 21:25 1,000 MLS/HR Vital Signs/I&O 04/08/22 20:42 Temp 36.6 Pulse 83 Resp 20 B/P (MAP) 157/105 (122) Pulse Ox 99 O2 Delivery Room Air Blood Pressure Mean: 122 Diagnostic Imaging Diagonstic Imaging: CT Plain Films/CT/US/NM/MRI: abdomen Comments [facility], [place] NAME: GISELL YOST [facility] REC#: [id number] PT STATUS: REG ER : 1970 PHYSICIAN: TALI PRESSLEY FIREPROOF DOOR MAKER ADMIT DATE: 04/08/22/ER Signed Date of Exam:04/08/22 CT ABDOMEN/PELVIS W PROCEDURE: CT abdomen and pelvis with contrast. TECHNIQUE: Multiple contiguous axial images were obtained through the abdomen and pelvis after administration of intravenous contrast. Auto Exposure Controls were utilized during the CT exam to meet ALARA standards for radiation dose reduction. All CT scans use one or more of the following dose optimizing techniques: automated exposure control, MA and/or KvP adjustment based on patient size and exam type or iterative reconstruction. INDICATION Incarcerated hernia repair, abdominal pain, distention, fever, nausea and vomiting, history of appendectomy. COMPARISON: 04/06/2022 FINDINGS: There is dependent atelectasis in the lung bases bilaterally. The heart is normal in size. The liver demonstrates no focal lesions. The spleen appears normal. The pancreas is normal. The adrenal glands are normal. The kidneys demonstrate no enhancing lesions. There is a nonobstructing calculus in the right kidney. There is no hydronephrosis. There are multiple distended loops of small bowel. There are postsurgical changes from prior appendectomy. There may be a small transition point in the right abdomen (image 152 series 2). No rim-enhancing drainable fluid collections are seen. There is mild edema at the surgical site with a small amount of free fluid. There is no significant free air seen. Small amount of air is seen in the subcutaneous fat from the recent surgery. There is trace air in the urinary bladder, likely from recent instrumentation. No acute osseous abnormality is seen. IMPRESSION: 1. Multiple distended loops of small bowel. This is favored to be due to ileus given the recent surgery, although a low-grade partial bowel obstruction is difficult to exclude, with a questionable transition point in the right abdomen. 2. Post-appendectomy changes. No unexpected free air in the abdomen. 3. Atelectasis in the lung bases. Dictated by: Dictated on workstation # [id number] Dict: 04/08/222152 Trans: 04/08/222214 [facility] [id number] Interpreted by: ZURI VERA MD Electronically signed by: ZURI VERA MD 04/08/225 Departure Communication (Admissions) Time/Spoke to Admitting Phy: 22:11 Discussed case with iron guardrail installer surgeon Dr. Oshea. Will admit observation to Dr. Chandler, IVF, pain and nausea control. No need for NGT at this time. Impression Primary Impression: Postoperative paralytic ileus Disposition: ADMITTED INPATIENT Condition: Stable Admissions Decision to Admit Reason: Admit from ER (General) Decision to Admit/Date: Apr 08, 2022 Time/Decision to Admit Time: 21:57 Departure-Patient Inst. Referrals: PIPPA CROCKER MD (PCP/Family) Primary Care Physician TALI PRESSLEY FIREPROOF DOOR MAKER Apr 08, 2022 21:51
[2022-04-08 22:00] LABS: INR 1.1 (0.8-1.4); PROTHROMBIN TIME PATIENT 14.6 SEC (12.2-14.7)
--- NOTE | 2022-04-08 22:00 | Diagnostic Imaging Report ---
PROCEDURE: CT abdomen and pelvis with contrast. TECHNIQUE: Multiple contiguous axial images were obtained through the abdomen and pelvis after administration of intravenous contrast. Auto Exposure Controls were utilized during the CT exam to meet ALARA standards for radiation dose reduction. All CT scans use one or more of the following dose optimizing techniques: automated exposure control, MA and/or KvP adjustment based on patient size and exam type or iterative reconstruction. INDICATION Incarcerated hernia repair, abdominal pain, distention, fever, nausea and vomiting, history of appendectomy. COMPARISON: 04/06/2022 FINDINGS: There is dependent atelectasis in the lung bases bilaterally. The heart is normal in size. The liver demonstrates no focal lesions. The spleen appears normal. The pancreas is normal. The adrenal glands are normal. The kidneys demonstrate no enhancing lesions. There is a nonobstructing calculus in the right kidney. There is no hydronephrosis. There are multiple distended loops of small bowel. There are postsurgical changes from prior appendectomy. There may be a small transition point in the right abdomen (image 152 series 2). No rim-enhancing drainable fluid collections are seen. There is mild edema at the surgical site with a small amount of free fluid. There is no significant free air seen. Small amount of air is seen in the subcutaneous fat from the recent surgery. There is trace air in the urinary bladder, likely from recent instrumentation. No acute osseous abnormality is seen. IMPRESSION: 1. Multiple distended loops of small bowel. This is favored to be due to ileus given the recent surgery, although a low-grade partial bowel obstruction is difficult to exclude, with a questionable transition point in the right abdomen. 2. Post-appendectomy changes. No unexpected free air in the abdomen. 3. Atelectasis in the lung bases. Dictated by: Dictated on workstation # [id number]
[2022-04-08 23:34] VITALS: BP 138/75
[2022-04-08] MEDS ORDERED: METOCLOPRAMIDE INJ 10 MG/2 ML (REGLAN) IV PRN (23:45)
[2022-04-08] MEDS ORDERED: ONDANSETRON 4 MG/2 ML (SDV) Z0FRAN IV PRN (23:45)
[2022-04-08] MEDS ORDERED: fentaNYL INJ 100 MCG/2 ML AMP IV PRN (23:45)
[2022-04-08] MEDS ORDERED: PROMETHAZINE INJ 25 MG/ML (PHENERGAN) AMP IVP PRN (23:45)
[2022-04-08] MEDS: CIPROFLOXACIN 400 MG/D5W 200 ML (PRE-MIX) IV SCH (23:49)
[2022-04-08] MEDS: D5 1/2 NS 1000 ML IV SOLUTION 1,000 ML IV SCH (23:49)
[2022-04-08] MEDS: metroNIDAZOLE 500 MG/100 ML IVPB (PRE-MIX) IV SCH (23:49)
[2022-04-08] MEDS: HYDROmorphone 2 MG/ML VIAL (DILAUDID) IV PRN (23:54)
[2022-04-09] VITALS (7 sets, daily range): BP systolic 103–157; BP diastolic 59–105
[2022-04-09] MEDS ORDERED: RT-ALBUTEROL SULF 2.5 MG/3 ML PRE-MIX VIAL INH PRN (00:30)
[2022-04-09] MEDS: HYDROmorphone 2 MG/ML VIAL (DILAUDID) IV PRN ×7 (02:36→22:54)
[2022-04-09 05:25] LABS: BASOPHILS % (AUTO) 0 % (0-10); EOSINOPHILS # (AUTO) 0.5 10^3/uL (0.0-0.3); EOSINOPHILS % (AUTO) 3 % (0-10); HEMATOCRIT 43 % (40-54); HEMOGLOBIN 13.8 g/dL (13.3-17.7); LYMPHOCYTES # (AUTO) 1.9 10^3/uL (1.0-4.0); LYMPHOCYTES % (AUTO) 12 % (12-44); MEAN CORPUSCULAR HEMOGLOBIN 29 pg (25-34); MEAN CORPUSCULAR HGB CONC 32 g/dL (32-36); MEAN CORPUSCULAR VOLUME 90 fL (80-99); MEAN PLATELET VOLUME 9.9 fL (9.0-12.2); MONOCYTES # (AUTO) 1.2 10^3/uL (0.0-1.0); MONOCYTES % (AUTO) 8 % (0-12); NEUTROPHILS # (AUTO) 11.8 10^3/uL (1.8-7.8); NEUTROPHILS % (AUTO) 76 % (42-75); PLATELET COUNT 288 10^3/uL (130-400); WHITE BLOOD COUNT 15.5 10^3/uL (4.3-11.0)
[2022-04-09 05:45] LABS: CALCIUM 8.8 MG/DL (8.5-10.1); CREATININE SERUM 0.83 MG/DL (0.60-1.30); POTASSIUM 3.8 MMOL/L (3.6-5.0)
[2022-04-09] MEDS: RT-ALBUTEROL SULF 2.5 MG/3 ML PRE-MIX VIAL INH SCH ×2 (07:33→20:08)
[2022-04-09] MEDS ORDERED: METR-145 PO (09:46)
[2022-04-09] MEDS ORDERED: ACHD5005 PO (09:46)
[2022-04-09] MEDS ORDERED: DOCU100C37 PO (09:46)
[2022-04-09] MEDS ORDERED: CIPR500T5 PO (09:46)
[2022-04-09] MEDS: NICOTINE 21 MG (NICODERM) PATCH TD SCH (11:30)
[2022-04-09] MEDS: D5 1/2 NS 1000 ML IV SOLUTION 1,000 ML IV SCH ×2 (11:31→20:52)
[2022-04-09] MEDS: metroNIDAZOLE 500 MG/100 ML IVPB (PRE-MIX) IV SCH (11:31)
[2022-04-09] MEDS: CIPROFLOXACIN 400 MG/D5W 200 ML (PRE-MIX) IV SCH ×2 (11:31→22:38)
--- NOTE | 2022-04-09 16:55 | History & Physical-Surgical ---
History of Present Illness History of Present Illness Reason for visit/HPI Chief complaint nausea vomiting Patient is a 52-year-old male who underwent laparoscopic appendectomy yesterday. Patient went home began having nausea and vomiting. His abdomen slightly more distended. Nothing seemed to make things better. Nothing was making it worse. Patient states he is feeling little bit better today. He is passing a small amount of flatus. He had a CT scan demonstrating changes of ileus versus hard to exclude small bowel obstruction. Has not had any fever sweats chills shortness of breath or chest pain. Date of Admission Apr 08, 2022 at 22:11 Date Seen by a Provider: Apr 09, 2022 Time Seen by a Provider: 10:05 I consulted on this patient on 04/09/22 16:49 Attending Physician Nate Banks MD Admitting Physician Admitting Physician: Willy Oshea DO Attending Physician: Samantha Chandler DO Consult Allergies and Home Medications Allergies Coded Allergies: Penicillins (Verified Allergy, Unknown, FROM CHILDHOOD, 05/03/20) Patient Home Medication List Home Medication List Reviewed: Yes Ciprofloxacin HCl (Ciprofloxacin HCl) 500 Mg Tablet, 500 MG PO BID, (Reported) Entered as Reported by: DEVI SEVILLA on 04/09/22945 Last Action: Reviewed Docusate Sodium (Docusate Sodium) 100 Mg Capsule, 100 MG PO BID PRN for CONSTIPATION-1ST LINE, (Reported) Entered as Reported by: DEVI SEVILLA on 04/09/22945 Last Action: Reviewed Hydrocodone/Acetaminophen (Hydrocodone-Acetamin 5-325 mg) 5 Mg-325 Mg Tablet, 1 TAB PO Q4H PRN for PAIN-MODERATE (5-7), (Reported) Entered as Reported by: DEVI SEVILLA on 04/09/22945 Last Action: Reviewed Metronidazole (Metronidazole) 500 Mg Tablet, 500 MG PO TID, (Reported) Entered as Reported by: DEVI SEVILLA on 04/09/22945 Last Action: Reviewed Discontinued Medications Ciprofloxacin HCl (Cipro) 500 Mg Tablet, 500 MG PO BID Discontinued Reason: Duplicate Order Prescribed by: SAMANTHA CHANDLER on 04/07/22 105 Last Action: Discontinued Docusate Sodium (Colace) 100 Mg Capsule, 100 MG PO BID Discontinued Reason: Duplicate Order Prescribed by: SAMANTHA CHANDLER on 04/07/221058 Last Action: Discontinued Hydrocodone/Acetaminophen (Hydrocodone/Acetaminophen 5 MG/325 MG TAB) 1 Each Tablet, 1 TAB PO Q6H Prescribed by: WILLY OSHEA on 05/09/20 09 Hydrocodone/Acetaminophen (Hydrocodone-Acetamin 5-325 mg) 5 Mg-325 Mg Tablet, 1 EACH PO Q4H PRN for PAIN-MODERATE (5-7) Discontinued Reason: Duplicate Order Prescribed by: SAMANTHA CHANDLER on 04/07/221058 Last Action: Discontinued Metronidazole (Flagyl) 375 Mg Capsule, 500 MG PO TID Discontinued Reason: Duplicate Order Prescribed by: SAMANTHA CHANDLER on 04/07/221058 Last Action: Discontinued Past Hyppkwr-Eciqpy-Evtcnw Hx Patient Social History Smoking Status: Current Everyday Smoker Type Used: Cigarettes 2nd Hand Smoke Exposure: Yes Recent Hopitalizations: No Alcohol Use?: No Have you traveled recently?: No Seasonal Allergies Seasonal Allergies: Yes Surgeries History of Surgeries: Yes (R WRIST FX, L TIBIA FX, BACK, Hernia) Surgeries: Adenoidectomy, Appendectomy Respiratory History of Respiratory Disorde: No Cardiovascular History of Cardiac Disorders: No Neurological History of Neurological Disord: No Genitourinary History of Genitourinary Disor: No Gastrointestinal History of Gastrointestinal Di: No Musculoskeletal History of Musculoskeletal Dis: No Endocrine History of Endocrine Disorders: No HEENT History of HEENT Disorders: Yes (GLASSES) Cancer History of Cancer: No Psychosocial History of Psychiatric Problem: No Integumentary History of Skin or Integumenta: No Blood Transfusions History of Blood Disorders: No Adverse Reaction to a Blood Tr: No (N/A) Reviewed Nursing Assessment Reviewed/Agree w Nursing PMH: Yes Family Medical History Significant Family History: No Pertinent Family Hx Review of Systems Constitutional: No chills, No diaphoresis EENTM: No blurred vision, No double vision Respiratory: No dyspnea on exertion Cardiovascular: No chest pain Gastrointestinal: abdominal pain (Incisional), nausea, vomiting Genitourinary: No decreased output, No discharge Musculoskeletal: No back pain, No joint pain Skin: No change in color, No change in hair/nails Psychiatric/Neurological: Denies Anxiety, Denies Depressed, Denies Emotional Problems All Other Systems Reviewed Negative Unless Noted: Yes (Negative excepted noted.) Physical Exam Vital Signs Vital Signs - First Documented 9/27/22 9/28/22 20:42 00:11 Temp 36.6 Pulse 83 Resp 20 B/P (MAP) 157/105 (122) Pulse Ox 99 O2 Delivery Room Air FiO2 21 Capillary Refill : Less Than 3 Seconds Height, Weight, BMI Height: '" Weight: lbs. oz. kg; 36.18 BMI Method: General Appearance: No Apparent Distress, WD/WN HEENT: PERRL/EOMI, Normal ENT Inspection Neck: Normal Inspection, Non Tender Respiratory: Chest Non Tender, No Accessory Muscle Use, No Respiratory Distress Cardiovascular: Regular Rate, Rhythm, No JVD Gastrointestinal: Soft, Distended (minimal, incisions clean dry intact no signs of infection, minimal tenderness on palpation) Rectal: Deferred Back: No CVA Tenderness, No Vertebral Tenderness Extremity: Non Tender, No Calf Tenderness Neurologic/Psychiatric: Alert, Oriented x3 Skin: Normal Color, Warm/Dry Lymphatic: No Adenopathy Data Review Labs Laboratory Tests 04/08/22 20:49: White Blood Count 18.2H, Red Blood Count 5.30, Hemoglobin 15.2, Hematocrit 47, Mean Corpuscular Volume 89, Mean Corpuscular Hemoglobin 29, Mean Corpuscular Hemoglobin Concent 32, Red Cell Distribution Width 13.9, Platelet Count 335, Mean Platelet Volume 10.3, Immature Granulocyte % (Auto) 0, Neutrophils (%) (Auto) 83H, Lymphocytes (%) (Auto) 8L, Monocytes (%) (Auto) 6, Eosinophils (%) (Auto) 2, Basophils (%) (Auto) 0, Neutrophils # (Auto) 15.2H, Lymphocytes # (Auto) 1.4, Monocytes # (Auto) 1.1H, Eosinophils # (Auto) 0.4H, Basophils # (Auto) 0.0, Immature Granulocyte # (Auto) 0.1, Neutrophils % (Manual) 80, Lymphocytes % (Manual) 11, Monocytes % (Manual) 6, Eosinophils % (Manual) 3, Blood Morphology Comment NORMAL, Prothrombin Time 14.6, INR Comment 1.1, Activated Partial Thromboplast Time 40H, Sodium Level 139, Potassium Level 3.9, Chloride Level 101, Carbon Dioxide Level 25, Anion Gap 13, Blood Urea Nitrogen 14, Creatinine 0.96, Estimat Glomerular Filtration Rate 96, BUN/Creatinine Ratio 15, Glucose Level 120H, Calcium Level 9.6, Corrected Calcium 9.8, Total Bilirubin 0.6, Aspartate Amino Transf (AST/SGOT) 21, Alanine Aminotransferase (ALT/SGPT) 22, Alkaline Phosphatase 74, Total Creatine Kinase 96, C-Reactive Protein High Sensitivity 15.04H, Total Protein 7.1, Albumin 3.7 04/08/22 21:03: Urine Color ORANGE, Urine Clarity CLEAR, Urine pH 5.5, Urine Specific [place] >=1.030, Urine Protein 1+H, Urine Glucose (UA) NEGATIVE, Urine Ketones TRACEH, Urine Nitrite NEGATIVE, Urine Bilirubin 1+H, Urine Urobilinogen 1.0, Urine Leukocyte Esterase TRACEH, Urine RBC (Auto) TRACE-IH, Urine RBC 0-2, Urine WBC 2-5, Urine Squamous Epithelial Cells NONE, Urine Renal Epithelial Cells NONE, Urine Crystals NONE, Urine Bacteria NEGATIVE, Urine Casts NONE, Urine Mucus LARGEH, Urine Culture Indicated YES 04/08/22 22:14: Lactic Acid Level 0.97 04/09/22 05:10: White Blood Count 15.5H, Red Blood Count 4.81, Hemoglobin 13.8, Hematocrit 43, Mean Corpuscular Volume 90, Mean Corpuscular Hemoglobin 29, Mean Corpuscular Hemoglobin Concent 32, Red Cell Distribution Width 13.8, Platelet Count 288, Mean Platelet Volume 9.9, Immature Granulocyte % (Auto) 1, Neutrophils (%) (Auto) 76H, Lymphocytes (%) (Auto) 12, Monocytes (%) (Auto) 8, Eosinophils (%) (Auto) 3, Basophils (%) (Auto) 0, Neutrophils # (Auto) 11.8H, Lymphocytes # (Auto) 1.9, Monocytes # (Auto) 1.2H, Eosinophils # (Auto) 0.5H, Basophils # (Auto) 0.0, Immature Granulocyte # (Auto) 0.1, Sodium Level 137, Potassium Level 3.8, Chloride Level 104, Carbon Dioxide Level 22, Anion Gap 11, Blood Urea Nitrogen 13, Creatinine 0.83, Estimat Glomerular Filtration Rate 107, BUN/Creatinine Ratio 16, Glucose Level 116H, Calcium Level 8.8 Microbiology 04/08/22 Urine Culture - Final, Complete NO GROWTH Assessment/Plan Assessment/Plan Admission Diagonsis Status post laparoscopic appendectomy Postoperative ileus Nausea and vomiting Admission Status: Observation Assessment/Plan Status post laparoscopic appendectomy Postoperative ileus Nausea and vomiting Feel patient likely has postoperative ileus. He is passing some flatus. We will keep him n.p.o. IV fluids keep him on antibiotics repeat labs tomorrow. SAMANTHA CHANDLER DO Apr 09, 2022 16:55
[2022-04-09] MEDS ORDERED: diphenhydrAMINE 50 MG/ML INJ (BENADRYL) IVP PRN (23:30)
[2022-04-09] MEDS ORDERED: HYDROcodone/APAP 5 MG/325 MG (LORTAB) TAB PO PRN (23:30)
[2022-04-09] MEDS ORDERED: diphenhydrAMINE 50 MG/ML INJ (BENADRYL) ONE (23:32)
[2022-04-10] MEDS: metroNIDAZOLE 500 MG/100 ML IVPB (PRE-MIX) IV SCH ×2 (00:14→10:31)
[2022-04-10 04:20] VITALS: BP 139/87
[2022-04-10] MEDS: D5 1/2 NS 1000 ML IV SOLUTION 1,000 ML IV SCH ×2 (05:19→09:36)
[2022-04-10] MEDS: RT-ALBUTEROL SULF 2.5 MG/3 ML PRE-MIX VIAL INH SCH (07:17)
[2022-04-10 07:28] VITALS: BP 135/88
--- NOTE | 2022-04-10 07:45 | Progress Note - Surgery ---
LIZETT HINDS 04/10/22 0745: Subjective Date Seen by a Provider: Apr 10, 2022 Time Seen by a Provider: 07:40 Subjective/Events-last exam Patient is awake and alert in his bed this morning, no family at bedside. Patient reports that his pain is improved and now only has an occasional mild pain in his RLQ that he describes as crampy, nontender on palpation. Patient reports that he has not been having any more N/V. Patient has been passing flatus but no BM. Patient states that he has been ambulating and using his IS. Patient started on clears and reports he has been tolerating well. Patient has no new complaints. Review of Systems General: No Chills, No Night Sweats HEENT: No Head Aches, No Visual Changes, No Eye Pain Pulmonary: No Dyspnea, No Cough Cardiovascular: No: Chest Pain, Palpitations, Orthopnea Gastrointestinal: No: Nausea, Vomiting Genitourinary: No Dysuria, No Frequency Musculoskeletal: No: neck pain, shoulder pain Neurological: No: Weakness, Numbness, Incoordination Focused Exam Lactate Level 04/08/22 22:14: Lactic Acid Level 0.97 Objective Exam Vital Signs Date Time Temp Pulse Resp B/P (MAP) Pulse Ox O2 Delivery O2 Flow Rate FiO2 04/10/22 07:28 37.0 86 18 135/88 (104) 93 Room Air 04/10/22 07:17 93 Room Air 04/10/22 04:20 36.6 75 18 139/87 (104) 95 Room Air 04/09/22 23:58 36.8 78 18 138/84 (102) 93 Room Air 04/09/22 20:20 Room Air 04/09/22 20:09 98 Room Air 04/09/22 19:27 36.9 78 20 122/68 (86) 97 Room Air 04/09/22 15:45 36.7 77 20 152/91 (111) 96 Room Air 04/09/22 11:17 36.6 70 18 110/63 (79) 96 Room Air 04/09/22 08:00 Room Air I & O 04/10/22 07:00 Intake Total 1500 ml Balance 1500 ml Capillary Refill : Less Than 3 Seconds General Appearance: No Apparent Distress, WD/WN HEENT: PERRL/EOMI, Normal ENT Inspection Neck: Normal Inspection, Non Tender Respiratory: Chest Non Tender, No Accessory Muscle Use, No Respiratory Distress Cardiovascular: Regular Rate, Rhythm, No JVD Gastrointestinal: non tender, distended Extremity: Non Tender, No Calf Tenderness Neurologic/Psychiatric: Alert, Oriented x3 Skin: Normal Color, Warm/Dry Lymphatic: No Adenopathy Results Lab Microbiology 04/08/22 Blood Culture - Preliminary, Resulted No growth 04/08/22 Urine Culture - Final, Complete NO GROWTH Assessment/Plan Assessment/Plan Assessment/Plan Status post laparoscopic appendectomy Postoperative ileus Nausea and vomiting Currently on clears Continue IV fluids Continue antibiotics Continue antiemetics Continue pain management Encouraged patient to ambulate and use IS SAMANTHA GARCIA DO 04/10/22 1532: Subjective Subjective/Events-last exam Tolerating diet. No n/v. Pain controlled. Having flatus and bm. Wanting to go home. Denies n/v fever sweats chills shortness of breath or chest pain. Objective Exam General Appearance: No Apparent Distress, WD/WN HEENT: PERRL/EOMI, Normal ENT Inspection Neck: Normal Inspection, Non Tender Respiratory: Chest Non Tender, No Accessory Muscle Use, No Respiratory Distress Cardiovascular: Regular Rate, Rhythm, No JVD Gastrointestinal: non tender, distended (minimal), other (incisions c/d/i) Extremity: Non Tender, No Calf Tenderness Neurologic/Psychiatric: Alert, Oriented x3 Skin: Normal Color, Warm/Dry Lymphatic: No Adenopathy Assessment/Plan Assessment/Plan Assessment/Plan Status post laparoscopic appendectomy Postoperative ileus Nausea and vomiting Tolerating diet. PO antibiotics Pain management Encouraged patient to ambulate and use IS Patient wanting to go home, will dc home, slowly advance diet as tolerates Final Diagnosis Status post laparoscopic appendectomy Postoperative ileus Nausea and vomiting Supervisory-Addendum Brief Verification & Attestation Participated in pt care: history, MDM, physical Personally performed: exam, history, MDM, supervision of care Care discussed with: Medical Student Procedures: n/a Results interpretation: Verified all documentation Verification and Attestation of Medical Student E/M Service A medical student performed and documented this service in my presence. I reviewed and verified all information documented by the medical student and made modifications to such information, when appropriate. I personally performed the physical exam and medical decision making. Samantha Garcia, Apr 10, 2022,15:32 LIZETT HINDS Apr 10, 2022 07:45 SAMANTHA GARCIA DO Apr 10, 2022 15:32
[2022-04-10] MEDS: NICOTINE 21 MG (NICODERM) PATCH TD SCH (08:29)
[2022-04-10] MEDS ORDERED: NICOTINE PATCH REMOVAL TP SCH (08:59)
[2022-04-10 09:47] LABS: HEMATOCRIT 42 % (40-54); HEMOGLOBIN 13.8 g/dL (13.3-17.7); MEAN CORPUSCULAR HEMOGLOBIN 29 pg (25-34); MEAN CORPUSCULAR HGB CONC 33 g/dL (32-36); MEAN CORPUSCULAR VOLUME 87 fL (80-99); MEAN PLATELET VOLUME 9.6 fL (9.0-12.2); PLATELET COUNT 334 10^3/uL (130-400); WHITE BLOOD COUNT 10.1 10^3/uL (4.3-11.0)
[2022-04-10 10:09] LABS: CALCIUM 8.8 MG/DL (8.5-10.1); CREATININE SERUM 0.81 MG/DL (0.60-1.30); POTASSIUM 3.6 MMOL/L (3.6-5.0)
[2022-04-10 11:12] VITALS: BP 133/84
[2022-04-10] MEDS: CIPROFLOXACIN 400 MG/D5W 200 ML (PRE-MIX) IV SCH (12:02)
--- NOTE | 2022-04-10 15:27 | Discharge Inst-Simple/Standard ---
Discharge Inst-Standard Patient Instructions/Follow Up Plan of Care/Instructions/FU: 2 weeks Radha Activity as Tolerated: No Discharge Diet: Soft Diet Other Inst to Patient Follow up Appt: Make appointment for 2 week. Instructions: No lifting greater than 10 pounds. No strenuous activity. May shower in 24 hours, no tub bath or soaking. Use incentive spirometer at home as directed. No Smoking Skin/Wound Care: You have special glue over your incision that will fall off on it's own. Symptoms to Report: Appetite Changes, Extremity Discoloration, Numbness/Tingling, Swelling Increased, Bleeding Excessive, Eyesight Changes, Pain Increased, Urine Color Change, Constipation(Persistent), Fever over 101 degree F, Pain/Pressure in chest, Urinating Difficulty, Cough Up/Vomit Blood, Heart Beat Irreg/Pounding, Pain/Pressure in jaw, Vaginal Bleeding Increase, Cramps in feet or legs, Lightheadedness, Pain/Pressure in shoulder, Diarrhea(Persistent), Memory Changes Suddenly, Questions/Concerns, Weight gain consecutive days, Dizziness/Fainting, Nausea/Vomiting, Shortness of Breath, Weight gain over 2 pounds If questions or concerns contact your physician Or seek help at emergency department. SAMANTHA CHANDLER DO Apr 10, 2022 15:27
[2022-04-10 15:39] VITALS: BP 158/99
[2022-04-10 16:11] VITALS: BP 158/99
== END 2022-04-10 15:25 | disposition home or self-care (01) ==
LOC: EDUNIT# 20:35 → ER 20:37 → UNDOADMOB 22:11 → 4TH 22:11 → UNDODISOB 04-10 15:25
PROVIDERS: ADMIT Surgery; ATTEND Surgery
DX: K56.7 Ileus, unspecified (principal); R11.2 Nausea with vomiting, unspecified; F17.210 Nicotine dependence, cigarettes, uncomplicated
CPT/HCPCS: 74177; 80048 ×2; 80053; 81000; 82550; 83605; 85007; 85025; 85027 ×2; 85610; 85730; 86141; 87040; 87088; 94640 ×2; 94760 ×2; 96361 ×2; 96366 ×3; 96374; 96375 ×2; 96376 ×2; 99284; G0378; 36415